=== PATIENT | female | born 2000 | race Caucasian/White ===

== ENCOUNTER 2020-12-14 07:41 | Outpatient (CLI) | payer MEDICAID ==
[~2020-12-14] VITALS: Ht 152.4 cm; Wt 49.5 kg
--- NOTE | 2020-12-14 07:45 | NUR ---
Patient arrives ambulatory with FOB with complaints of a "small gush of fluid around 6:15 this morning." Patient denies contractions, reports normal movement and denies bleeding. Patient changes into gown, EFM explained and placed. 0755- Amniotrace negative, SVE per Sanju Mckenzie RN closed/thick/high. Patient repositioned WL and updated on plan of care. Assessment completed. See physician notification and orders.
[2020-12-14] MEDS ORDERED: PRENATAL (08:00)
[2020-12-14 08:15] VITALS: BP 114/58; PULSE 62; TEMP 98
--- NOTE | 2020-12-14 08:25 | NUR ---
Patient given dc instructions by Savage Johnson RN. Reviewed labor precautions and kick counts. will follow up as scheduled. leaves ambulatory with paperwork.
== END 2020-12-14 08:25 | disposition home or self-care (01) ==
LOC: LDRO 07:41
DX: O26.893 Other specified pregnancy related conditions, third trimester (principal); Z3A.31 31 weeks gestation of pregnancy

== ENCOUNTER 2021-01-29 11:14 | Outpatient (CLI) | payer MEDICAID ==
[~2021-01-29] VITALS: Ht 152.4 cm; Wt 52.7 kg
[~2021-01-29 11:14] MED LIST: PRENATAL
--- NOTE | 2021-01-29 11:20 | NUR ---
Patient arrives ambulatory to unit for external cephalic version procedure scheduled with Dr. Heaton. Patient denies contractions, leaking of fluid or vaginal bleeding. Reports normal movement. Plan of care and procedure reviewed, patient agrees and denies questions. EFM explained and placed. VS obtained. 1135- IV started in LFA, labs obtained. Saline locked per protocol. 1140- Dr. Heaton at bedside. EFM removed per physician. ECV attempt, see physician documentation for procedure. 1148- EFM reapplied following attempts. FHR noted 60-70 bpm. Patient repositioned RL and then LL. Physician remains at bedside. LR bolus infusing at 1150. FHR returns to baseline with inteventions. 1200- Dr. Heaton at bedside, reviewed FHR strip. Orders to monitor over one hour and discharge home. patient denies discomfort or questions.
[2021-01-29 12:00] VITALS: BP 122/82; PULSE 83; TEMP 98.5
[2021-01-29 12:30] VITALS: PULSE 76
[2021-01-29 13:00] VITALS: BP 108/59; PULSE 74; TEMP 98.4
--- NOTE | 2021-01-29 13:20 | NUR ---
Patient given discharge instructions. Patient denies abdominal pain, contractions, leaking of fluid or vaginal bleeding. Reports normal movement. Reviewed kick counts. Leaves ambulatory with paperwork.
== END 2021-01-29 13:20 | disposition home or self-care (01) ==
LOC: LDRO 11:14
DX: O32.1XX0 Maternal care for breech presentation, not applicable or unspecified (principal); Z3A.37 37 weeks gestation of pregnancy; Z37.0 Single live birth
CPT/HCPCS: J3105; J7120

== ENCOUNTER 2021-02-01 10:12 | Outpatient (CLI) | payer MEDICAID ==
[~2021-02-01] VITALS: Ht 152.4 cm; Wt 52.7 kg
--- NOTE | 2021-02-01 07:45 | NUR ---
Pt arrived on unit ambulatory and escorted by . Pt reports pain in her upper abdomen since last evening and worsening this morning. Pt denies any leaking of fluid or vaginal bleeding and reports normal movement. EFM and toco monitors started. Vital signs WNL. SVE by this RN /-3.
--- NOTE | 2021-02-01 08:01 | NUR ---
Dr. Heaton notified of pt's arrival. Orders for labor assessment received. Dr. Mancilla at the bedside for ultrasound and confirmed breech position.
--- NOTE | 2021-02-01 08:25 | NUR ---
Dr. Heaton on the unit. FHR tracing reviewed. Update given.
[2021-02-01 08:45] VITALS: BP 122/76; PULSE 73; TEMP 98.2
[2021-02-01 08:55] VITALS: BP 113/70; PULSE 67
== END 2021-02-01 10:16 | disposition home or self-care (01) ==
LOC: LDRO 10:12
DX: O62.9 Abnormality of forces of labor, unspecified (principal); Z3A.38 38 weeks gestation of pregnancy

== ENCOUNTER 2021-02-03 08:45 | Inpatient (IN) | payer MEDICAID ==
[2021-02-03] VITALS (18 sets, daily range): BP systolic 114–140; BP diastolic 38–91; PULSE 55–92; TEMP 97.8–98.5
[~2021-02-03] VITALS: Ht 152.4 cm; Wt 52.7 kg
--- NOTE | 2021-02-03 08:45 | NUR ---
0845- Pt arrives on unit via wheelchair with complaints of SROM at 0730 this morning. Pt into bathroom, voids, changes into gown. 0854- Pt into bed, EFM and TOCO on and tracing well. Pt states she is having LOF with each contraction, states UCs are 3mins apart. Pt is tense and crying inermittently with UCs. Pt states baby was moving last night but she has not noticed movement today. VSS. Pt bearing down with UC. Pt coached to breathe and not bear down. SVE by this RN. Dr Heaton called immediately and updated, order recieved. Staff notifice of plan to take to C/S as soon as possible. Pt updated on POC. Pt anxious and scared for surgery, reassured. 09- Dr Heaton at bedside, US confirmed breech presentation. 0912- EFM and TOCO off monitor. Pt transfers into wheelchair, taken to OR.
[2021-02-03 09:16] LABS: BASO % 0.2 % (0.0-2.0); EOS % 0.3 % (0-4.0); GRAN # 7.8 (1.4-6.5); GRAN % 71.6 % (42.2-75.2); HEMOGLOBIN 12.2 g/dl (12.5-16.0); LYMPH # 2.3 (1.2-3.4); LYMPH % 20.9 % (20.0-51.0); MEAN CELL VOLUME 88 fl (80.0-100.0); MEAN CORPUSCULAR HEMOGLOBIN 32 pg (27.0-31.0); MEAN CORPUSCULAR HGB CONC 36 g/dl (33.0-37.0); MEAN PLATELET VOLUME 9.5 fl (7.4-10.4); MONO # 0.7 (0.1-0.6); MONO % 6.2 % (1.7-9.3); PLATELET COUNT 308 K/mm3 (130-400); RED BLOOD COUNT 3.86 M/mm3 (4.10-5.30); REDCELL DISTRIBUTION WIDTH-CV 12.8 % (11.5-14.5)
[2021-02-03 09:19] LABS: HEMATOCRIT 33.9 % (37.0-47.0)
[2021-02-04 01:40] VITALS: BP 115/80; PULSE 70; TEMP 98.1
--- NOTE | 2021-02-04 08:40 | NUR ---
REPORT FROM OFF GOING RN, CARE TAKEN OVER BY THIS RN.
[2021-02-04 09:31] VITALS: BP 107/67; PULSE 91; TEMP 98.4
--- NOTE | 2021-02-04 10:01 | NUR ---
Initial visit; Parents thanked [employer] for offering congratulations and God's blessings for the of their daughter. [employer] thanked family for choosing our hospital.
[2021-02-04 15:39] VITALS: BP 123/77; PULSE 77; TEMP 98.4
[2021-02-04 20:30] VITALS: BP 111/68; PULSE 74; TEMP 98.1
[2021-02-05] MEDS ORDERED: PERCOCET 325 MG1 TA2 PO (07:32)
[2021-02-05] MEDS ORDERED: MOTRIN 800800 MG/TAB PO (07:32)
[2021-02-05 08:30] VITALS: BP 119/74; PULSE 88; TEMP 98.4
--- NOTE | 2021-02-05 12:53 | NUR ---
DISCHARGE INFORMATION PROVIDED. NO QUESTIONS AT THIS TIME. PRESCRIPTIONS SENT TO PHARMACY.
== END 2021-02-05 14:05 | disposition home or self-care (01) | DRG 788 ==
LOC: LDRO 08:45 → LDR 09:03 → OB 11:15
PROVIDERS: ADMIT Obstetrics & Gynecology
PROC: 10D00Z1 Extraction of Products of Conception, Low, Open Approach (ICD-10-PCS; principal; 2021-02-03)
DX: O32.1XX0 Maternal care for breech presentation, not applicable or unspecified (principal); Z3A.38 38 weeks gestation of pregnancy; Z37.0 Single live birth; O99.344 Other mental disorders complicating childbirth; F32.9 Major depressive disorder, single episode, unspecified; O99.62 Diseases of the digestive system complicating childbirth; K21.9 Gastro-esophageal reflux disease without esophagitis
CPT/HCPCS: J0690; J1100; J1885; J2210; J2250; J2405; J2590; J3010; J7120